=== PATIENT | female | born 1995 | race Two or more races ===

== ENCOUNTER 2017-10-12 03:32 | Inpatient (IN) | payer BC, OTHER ==
[2017-10-12] MEDS ORDERED: Ondansetron ODT 4 MG TAB ONE (03:59)
[2017-10-12] MEDS ORDERED: Acetaminophen 500 MG TAB ONE (04:05)
[2017-10-12 04:18] LABS: #Eosinphils 0.1 thou/uL (0.0-0.7); %Basophils 0.3 % (0.0-1.0); %Eosinophils 0.7 % (0.0-10.0); %Lymphocytes 13.9 % (21.0-51.0); %Monocytes 0.3 % (0.0-10.0); %Neutrophils 84.9 % (42.0-75.0); Hemoglobin 13.9 g/dL (12.0-16.0); Mean Corpuscular HGB CONC 35.3 g/dL (32.0-36.0); Mean Corpuscular Hemoglobin 31.9 pg (27.0-31.0); Mean Corpuscular Volume 90.3 fl (81.0-99.0); Mean Platelet Volume 7.7 fL (7.4-10.4); Platelet Count 168 thou/uL (130-400); RBC Distribution Width 13.3 % (11.5-14.5); Red Blood Cell (RBC) Count 4.37 mill/uL (4.20-5.40); White Blood Cell (WBC) Count 7.1 thou/uL (4.8-10.8)
[2017-10-12 04:21] LABS: Pregnancy Test - Urine (BHCG) Negative (Negative); Pregu Control Background? CLEAR/WHITE (CLR/WHITE); Pregu Control Bar Appear? YES (CONTROL BAR)
[2017-10-12 04:22] LABS: Bilirubin Negative (Negative); Blood, Urine Moderate (Negative); Clarity CLOUDY (Clear); Glucose, Urine (Dipstick) Negative (Negative); Leukocyte Moderate (Negative); Nitrite Positive (Negative); Protein, Urine (Dipstick) 30 mg/dL (Neg-Trace); Specific Gravity, Urine 1.014 (1.002-1.036); Urobilinogen 0.2 mg/dL (0.2-1.0); pH, Urine 6.5 (5.0-9.0)
[2017-10-12 04:23] LABS: BHCG - Serum Negative (NEGATIVE); Pregs Control Background? CLEAR/WHITE (CLR/WHITE); Pregs Control Bar Appear? YES (CONTROL BAR)
[2017-10-12 04:25] LABS: Bacteria/HPF 4+ HPF (None Seen); Hyaline Casts/LPF 0-3 HYALINE CAST LPF (0-3 Hyaline); Pathc Cast-AUWi Flag 0.54 (0-2.49); Squamous Epithelial 0-3 HPF (0-3); Yeast-AUWi Flag 23.4 (0-25.0)
[2017-10-12 04:28] LABS: Specific Gravity 1.014 (1.002-1.036)
[2017-10-12 04:30] LABS: Anion Gap 13 mmol/L (10-20); BUN (Urea Nitrogen) 15 mg/dL (7.0-18.7); Calc. Creatinine Clearance 0 mL/min (70-130); Calcium 9.4 mg/dL (7.8-10.44); Carbon Dioxide 22 mmol/L (22-29); Chloride 107 mmol/L (98-107); Estimated GFR-MDRD 65; Glucose 94 mg/dL (70-105); Potassium 3.9 mmol/L (3.5-5.1); Sodium 138 mmol/L (136-145)
[2017-10-12] MEDS ORDERED: Ketorolac Tromethamine 30 MG/ML VIAL ONE (05:15)
[2017-10-12] MEDS ORDERED: Ondansetron ODT 4 MG TAB PO PRN (06:37)
[2017-10-12] MEDS ORDERED: Ondansetron HCl/PF 4 MG/2 ML Vial IVP PRN (06:37)
[2017-10-12] MEDS ORDERED: Acetaminophen 325 MG TAB PO PRN ×2 (06:38→08:31)
[2017-10-12] MEDS ORDERED: HYDROcodone/Acetaminophen 5/325 mg Tablet PO PRN ×2 (08:31→20:51)
[2017-10-12] MEDS ORDERED: Benzonatate 100 MG CAP PO PRN (08:31)
[2017-10-12] MEDS ORDERED: cloNIDine 0.1 MG TAB PO PRN (08:31)
[2017-10-12] MEDS ORDERED: Nitroglycerin 0.4 MG TAB (25 Tab Bottle) SL PRN (08:31)
[2017-10-12] MEDS ORDERED: Mag-Al 1200 mg/1200 mg/30 ML UDCUP PO PRN (08:31)
[2017-10-12] MEDS ORDERED: Diabetic Tussin 200 MG/10 ML UDCUP PO PRN (08:31)
[2017-10-12] MEDS ORDERED: Bisacodyl 5 MG TAB PO PRN (08:31)
[2017-10-12] MEDS ORDERED: hydrALAZINE 20 MG/ML VIAL SLOW IVP PRN (08:31)
[2017-10-12] MEDS ORDERED: Calcium Carbonate 500 MG ChewTAB PO PRN (08:31)
[2017-10-12] MEDS ORDERED: Senokot 8.6 MG TAB PO PRN (08:31)
[2017-10-12 08:41] LABS: Lactic Acid 0.9 mmol/L (0.5-2.2)
[2017-10-12] MEDS ORDERED: cefTRIAXone\\ROCEPHIN 1 GM in Sodium Chloride 0.9% 100 ML IVPB SCH (08:45)
[2017-10-12] MEDS ORDERED: cefTRIAXone\\ROCEPHIN 1 GM, Syringe 0.4 ML in Sterile Water 9.6 ML SLOW IVP SCH (10:00)
[2017-10-12 10:27] LABS: HIV (1/2) Antibody/Antigen Reflxed Confirmation (NonReactive)
[2017-10-12 10:28] LABS: HIV 1/2 INDEX 363.46 S/CO (<1.00)
[2017-10-12] MEDS: Enoxaparin Sodium 40 MG/0.4 ML SYRINGE SC SCH (11:47)
[2017-10-12] MEDS: Sodium Chloride 0.9% 1,000 ML IV SCH ×2 (11:48→22:27)
[2017-10-12] MEDS: Famotidine 20 MG TAB PO SCH ×2 (11:48→21:02)
[2017-10-12 12:30] VITALS: BMI 32.8
[2017-10-12] MEDS ORDERED: [UNRECOGNIZED DRUG - OTHER] FS SCH (12:30)
--- NOTE | 2017-10-12 12:31 | HP ---
DATE OF ADMISSION: 10/12/2017 PRIMARY CARE PHYSICIAN: Dr. Tushar Inman. CHIEF COMPLAINT: Dysuria, right flank pain and chills. HISTORY OF PRESENTING ILLNESS: Ms. Martinez is a very pleasant 22-year-old female with past m edical history of HIV, which is under remission, who presented to the emergency room with above-menti oned complaint. History is mainly obtained by the patient herself and electronic medical records hav e been reviewed. Ms. Martinez reports that she was diagnosed with HIV 2 years ago and since then she has followed up with Infectious Disease, Dr. Le and is currently on Genvoya and her viral load was undetectable. She started to have symptoms of dysuria and frequency about 1 week ago. Her symptoms worsened up to the point where 2 days ago, she started to have right flank pain, which has since worsened. She also started to have chills and nausea yesterday and presented to the ER. In the emergency room, she was found to have temperature of 100.7 and she was tachycardic at 212. Her urinalysis suggested urinary tract infection with +4 bacteria, multiple wbc's, rbc's, leukocyte esterase, and nitrite. She recei nini a dose of Rocephin in the emergency room and is now being admitted for urinary tract infection an d possibly pyelonephritis. PAST MEDICAL HISTORY: HIV. PAST SURGICAL HISTORY: None. PAST PSYCHIATRIC: No anxiety, no depression. SOCIAL HISTORY: She has 2 children and has no history of drug, tobacco or alcohol abuse. FAMILY HISTORY: Both parents are alive and healthy. She denies any history of premature coronary ar cecy disease, stroke, diabetes, and hypertension running in her family. ALLERGIES: No known medication allergies. MEDICATIONS: Genvoya 1 tablet daily. REVIEW OF SYSTEMS: The following complete review of systems was negative, unless otherwise mentioned in the HPI or below: Constitutional: Weight loss or gain, ability to conduct usual activities. Skin: Rash, itching. Eyes: Double vision, pain. ENT/Mouth: Nose bleeding, neck stiffness, pain, tenderness. Cardiovascular: Palpitations, dyspnea on exertion, orthopnea. Respiratory: Shortness of breath, wheezing, cough, hemoptysis, fever or night sweats. Gastrointestinal: Poor appetite, abdominal pain, heartburn, nausea, vomiting, constipation, or diarr hea. Genitourinary: Urgency, frequency, dysuria, nocturia. Musculoskeletal: Pain, swelling. Neurologic/Psychiatric: Anxiety, depression. Allergy/Immunologic: Skin rash, bleeding tendency. PHYSICAL EXAMINATION: VITAL SIGNS: Upon presentation, blood pressure 127/76, pulse of 112, respirations 22, temperature 10 0.7, and saturating 97% on room air. GENERAL: No acute distress, awake, alert, oriented x3. HEENT: Mucous membrane is moist and pink. No oropharyngeal exudate or erythema. Head is normocepha lic, atraumatic. Pupils are equal and reactive to light and accommodation. Extraocular movement is intact. NECK: Supple without any lymphadenopathy, JVD or bruit. CHEST: Clear to auscultation without any wheezing, rales or rhonchi. CARDIOVASCULAR: Rhythm is regular without any murmur, rubs or gallops. ABDOMEN: Soft, nontender, and nondistended. No suprapubic tenderness either. EXTREMITIES: She has mild right CVA tenderness. No obvious discoloration or hematomas. SKIN: Free of any rashes or bruises. Feels warm and dry to touch. NEUROLOGIC: Examination is nonfocal. PSYCHIATRIC: Normal affect. LABORATORY DATA: Her CBC shows WBCs at 7.1 with 84% neutrophils, otherwise unremarkable. Serum chem istries are unremarkable. Lactic acid elevated at 2.3, which has trended down to 0.9. Serum pregnan cy test is negative. Urinalysis as per the HPI. IMPRESSION AND PLAN: 1. Pyelonephritis is most likely the diagnosis at this time especially given the right-sided CVA ten derness and flank pain. The patient will be continued on Rocephin and urine cultures have been obtai bella. Blood cultures have also been obtained. We will consult Infectious Disease, Dr. Le for furt her recommendations. At this time, it seems like the patient has well controlled human immunodeficie ncy virus and the risk for opportunistic infection is low. We will, however, obtain a CT with stone protocol to rule out alternative causes. She is currently hemodynamically stable and will be admitte d to medical floor. 2. Human immunodeficiency virus. We will restart her home medications of Genvoya. Recheck her joshua n immunodeficiency virus status with PCI and antibody. Once again, Dr. Le will be notified. 3. Deep venous thrombosis and gastrointestinal prophylaxis. 4. Add p.r.n. medication orders. DISPOSITION: Ms. Martinez is currently being admitted to medical floor for UTI with possible pyelonephr itis. Estimated length of stay is at least 2-3 minutes. Further management will depend upon her cli nical course.
[2017-10-12] MEDS ORDERED: FLU VACC QS2017-18 36 mo. & older 0.5 ML SYRINGE IM ONE (12:45)
--- NOTE | 2017-10-12 13:33 | CT ---
CT ABDOMEN AND PELVIS WITHOUT CONTRAST STONE PROTOCOL: HISTORY: Pyelonephritis. COMPARISON: None. FINDINGS: Lung bases are clear. No pericardial effusion. Cholelithiasis is present. The spleen is enlarged measuring 14 cm in length. There is mild right-sided hydroureteral nephrosis with fluid within the perirenal space. Mild dilata tion at multiple right-sided gonadal veins. No calculus is seen within the right ureter. Left renal collecting system is without hydroureteral nephrosis or nephroureteral lithiasis. The appendix is visualized and is normal. The skeleton is unremarkable. IMPRESSION: Mild thickening of the renal pelvic urothelium with very mild prominence of right proximal ureter. T his can be sequelae of pyelonephritis, pyelitis or recently passed stone. No nephroureteral lithiasi s is present. Alternatively, there is dilatation of the right gonadal vein which is markedly tortuou s. Thrombophlebitis is definitely a possibility with reactive thickening of the right ureter. POS: AD
--- NOTE | 2017-10-12 13:35 | ULT ---
BILATERAL RENAL ULTRASOUND: History: Pyelonephritis. Comparison: None. FINDINGS: The right kidney measures 10.6 x 4.1 x 6.2 cm. Left kidney measures 10.2 x 4.7 x 6.1 cm. Pre void uri nary bladder volume is 69 ml. No mass, hydronephrosis, or abnormal calcifications. IMPRESSION: Normal ultrasound. POS: BRENNA
--- NOTE | 2017-10-12 18:00 | CON ---
DATE OF CONSULTATION: 10/12/2017 REASON FOR CONSULTATION: Pyelonephritis. HISTORY OF PRESENT ILLNESS: A 22-year-old with longstanding history of HIV infection with adequate a ntiretroviral therapy intake has had couple of pregnancies while HIV seropositive and the last one wa s last year. She is currently on Genvoya and last CD4 cell count and viral load are from 12/2016, CD 4 701 and viral load less than 20. The patient claims adherence to her treatment, but now has been a dmitted with clinical symptoms consistent with an invasive UTI for the past 2 days including flank pa in, fever, chills, nausea. Currently, she is feeling better. The patient has been receiving IV ceft riaxone, denies any headaches, no visual symptoms, sore throat, odynophagia, dysphagia, no cough or s putum production or chest pain. Moderate right-sided flank pain, some dysuria. No joint symptoms or skin disorder. No neurological symptoms. PAST MEDICAL HISTORY: HIV seropositive status on Genvoya, last CD4 cell count is above 700 in 7, viral load was suppressed. PAST SURGICAL HISTORY: Negative. She is G2, P2. SOCIAL HISTORY: Never smoker. . FAMILY HISTORY: Noncontributory. ALLERGIES: None. MEDICATIONS: Genvoya 1 tablet daily. PHYSICAL EXAMINATION: VITAL SIGNS: T-max 98.9, blood pressure 108/55, pulse 81, respirations 18, and O2 sat 99%. SKIN: Normal. Peripheral IV access. No Briceno catheter. No lymphadenopathy. HEENT: Ocular movements are conjugate. Oral cavity normal. NECK: Supple. LUNGS: With symmetric clear breath sounds. HEART: S1, S2, regular rate. No S3 or S4. ABDOMEN: Soft, not distended or tender. No ascites. No bladder distention. NEUROLOGIC: Nonfocal. LABORATORY: White cell count 7.1, hemoglobin 13, platelets 168. Normal chemistry profile. Pregnanc y test negative. Urinalysis greater than 50 WBCs and pending urine culture. Last urine cultures log ged in about a year before with a pansensitive E. coli. ASSESSMENT: Human immunodeficiency virus seropositive status with previous adequate controlled viremia and normal CD4 cell count, now presents with pyelonephritis. DISCUSSION: The patient will continue on Rocephin to which she seems to be responding and wait on cu lture results and then transitioned to hopefully oral antimicrobial agent either Bactrim or ciproflox acin or levofloxacin, preferably depending on susceptibility of results. We will check a CD4 cell co unt and viral load while she is in the hospital.
[2017-10-12] MEDS: HYDROcodone/Acetaminophen 5/325 mg Tablet PO PRN (21:02)
[2017-10-13] MEDS: HYDROcodone/Acetaminophen 5/325 mg Tablet PO PRN ×2 (05:30→20:13)
[2017-10-13 05:56] LABS: #Eosinphils 0.1 thou/uL (0.0-0.7); #Lymphocytes 1.9 thou/uL (1.20-3.40); #Monocytes 0.5 thou/uL (0.11-0.59); %Basophils 0.2 % (0.0-1.0); %Lymphocytes 34.1 % (21.0-51.0); %Monocytes 9.7 % (0.0-10.0); %Neutrophils 53.9 % (42.0-75.0); Hemoglobin 11.2 g/dL (12.0-16.0); Mean Corpuscular HGB CONC 33.3 g/dL (32.0-36.0); Mean Corpuscular Hemoglobin 31.1 pg (27.0-31.0); Mean Corpuscular Volume 93.2 fl (81.0-99.0); Mean Platelet Volume 8.1 fL (7.4-10.4); Platelet Count 162 thou/uL (130-400); RBC Distribution Width 13.4 % (11.5-14.5); Red Blood Cell (RBC) Count 3.62 mill/uL (4.20-5.40); White Blood Cell (WBC) Count 5.5 thou/uL (4.8-10.8)
[2017-10-13 06:25] LABS: Anion Gap 8 mmol/L (10-20); BUN (Urea Nitrogen) 13 mg/dL (7.0-18.7); Calc. Creatinine Clearance 160 mL/min (70-130); Calcium 8.2 mg/dL (7.8-10.44); Carbon Dioxide 21 mmol/L (22-29); Chloride 112 mmol/L (98-107); Estimated GFR-MDRD 86; Glucose 80 mg/dL (70-105); Sodium 137 mmol/L (136-145)
[2017-10-13] MEDS: Sodium Chloride 0.9% 1,000 ML IV SCH ×2 (06:39→17:49)
[2017-10-13] MEDS: cefTRIAXone\\ROCEPHIN 1 GM, Syringe 0.4 ML in Sterile Water 9.6 ML SLOW IVP SCH (06:56)
[2017-10-13] MEDS: GENVOYA PO SCH ×2 (08:32→20:14)
[2017-10-13] MEDS: Enoxaparin Sodium 40 MG/0.4 ML SYRINGE SC SCH (08:33)
[2017-10-13] MEDS: Famotidine 20 MG TAB PO SCH ×2 (08:33→20:12)
[2017-10-13] MEDS ORDERED: Non-Formulary Item 1 EACH (Elviteg/Cob/Emtri/Tenof Alafen [Genvoya Tablet] 1 TAB) PO SCH (09:00)
[2017-10-13] MEDS: Ondansetron HCl/PF 4 MG/2 ML Vial IVP PRN ×2 (10:52→20:13)
--- NOTE | 2017-10-13 13:01 | PDOC.PN ---
- Subjective Encounter Start Date: 10/13/17 Encounter Start Time: 13:00 Subjective: c/o headache,malaise and more flank pain this morning -: no fever/chills.no N/V - Objective MAR Reviewed: Yes Vital Signs & Weight: Vital Signs (12 hours) Temp Pulse Resp BP Pulse Ox 10/13/17 09:00 98.8 F 64 16 121/57 L 100 10/13/17 08:00 98.7 F 76 20 10/13/17 05:30 98.7 F 76 20 130/69 98 Weight Weight 210 lb I&O: 10/12/17 10/13/17 10/14/17 06:59 06:59 06:59 Intake Total 1935 Output Total 1200 Balance 735 Result Diagrams: 10/13/17 05:17 10/13/17 05:17 Additional Labs: Microbiology 10/12/17 03:57 Urine Straight Catheter Urine Culture - Preliminary Escherichia coli 10/12/17 03:50 Venous blood - Right Hand Blood Culture - Preliminary Specimen has been received and culture in progress. No Growth to date. 10/12/17 03:50 Venous blood - Left Arm Blood Culture - Preliminary Specimen has been received and culture in progress. No Growth to date. Laboratory Tests 10/12/17 10/12/17 10/12/17 03:00 03:50 08:14 Lactic Acid 2.3 H 0.9 HIV 1&2 Antigen & Ab Reflxed Confirmation H Radiology Reviewed by me: Yes (Renal US-NL.Abd CT-no stones) Phys Exam - Physical Examination Constitutional: NAD tired looking HEENT: PERRLA, moist MMs, sclera anicteric, oral pharynx no lesions Neck: no nodes, no JVD, supple, full ROM Respiratory: no wheezing, no rales, no rhonchi, clear to auscultation bilateral Cardiovascular: RRR, no significant murmur Gastrointestinal: soft, non-tender, no distention, positive bowel sounds Musculoskeletal: no edema, pulses present Neurological: non-focal, normal sensation, moves all 4 limbs Psychiatric: normal affect, A&O x 3 Skin: no rash, normal turgor, cap refill <2 seconds Dx/Plan (1) Pyelonephritis Code(s): N12 - TUBULO-INTERSTITIAL NEPHRITIS, NOT SPCF ACUTE OR CHRONIC Status: Acute (2) Sepsis Code(s): A41.9 - SEPSIS, UNSPECIFIED ORGANISM Status: Acute (3) HIV (human immunodeficiency virus infection) Status: Acute - Plan out of bed/ambulate, DVT proph w/SCDs cont Rocephin for now.Urine Cx w E.Coli -: ID following. -: ? Gonadal vein thrombophlebitis accd to CT.clinically may not be relevant -: CD4,Viral load pending. -: cont supportive care. IVF.follow final results * . Review of Systems - Review of Systems Constitutional: weakness, malaise Eyes: negative: Pain, Vision Change, Conjunctivae Inflammation, Eyelid Inflammation, Redness, Other ENT: negative: Ear Pain, Ear Discharge, Nose Pain, Nose Discharge, Nose Congestion, Mouth Pain, Mouth Swelling, Throat Pain, Throat Swelling, Other Respiratory: negative: Cough, Dry, Shortness of Breath, Hemoptysis, SOB with Excertion, Pleuritic Pain, Sputum, Wheezing Gastrointestinal: Abdominal Pain. negative: Nausea, Vomiting, Diarrhea, Constipation, Melena, Hematochezia, Other Genitourinary: negative: Dysuria, Frequency, Incontinence, Hematuria, Retention , Other Musculoskeletal: negative: Neck Pain, Shoulder Pain, Arm Pain, Back Pain, Hand Pain, Leg Pain, Foot Pain, Other Skin: negative: Rash, Lesions, Fredrick, Bruising, Other Neurological: negative: Weakness, Numbness, Incoordination, Change in Speech, Confusion, Seizures, Other - Medications/Allergies Allergies/Adverse Reactions: Allergies Allergy/AdvReac Type Severity Reaction Status Date / Time No Known Allergies Allergy Verified 10/12/17 07:17 Medications: Current Medications Acetaminophen (Tylenol) 650 mg PO Q4H PRN PRN Reason: Headache/Fever or Pain Hydrocodone Bitart/Acetaminophen ([place] 5/325) 1 tab PO Q4H PRN PRN Reason: Moderate Pain (4-6) Last Admin: 10/12/17 18:00 Dose: 1 tab Hydrocodone Bitart/Acetaminophen ([place] 5/325) 2 tab PO Q4H PRN PRN Reason: Severe Pain (7-10) Last Admin: 10/13/17 05:30 Dose: 2 tab Al Hydroxide/Mg Hydroxide (Maalox) 30 ml PO Q6H PRN PRN Reason: Heartburn or Indigestion Benzonatate (Tessalon) 100 mg PO Q4H PRN PRN Reason: Cough Bisacodyl (Dulcolax) 10 mg PO DAILYPRN PRN PRN Reason: Constipation Calcium Carbonate (Tums) 1,000 mg PO Q4H PRN PRN Reason: Heartburn or Indigestion Clonidine (Catapres) 0.1 mg PO Q4H PRN PRN Reason: Systolic BP > 160 Enoxaparin Sodium (Lovenox) 40 mg SC 0900 [facility] Last Admin: 10/13/17 08:33 Dose: Not Given Famotidine (Pepcid) 20 mg PO BID [facility] Last Admin: 10/13/17 08:33 Dose: 20 mg Guaifenesin (Robitussin Sf) 200 mg PO Q4H PRN PRN Reason: Cough Hydralazine HCl (Apresoline) 10 mg SLOW IVP Q4H PRN PRN Reason: Systolic BP > 180 Sodium Chloride (Normal Saline 0.9%) 1,000 mls @ 100 mls/hr IV .Q10H [facility] Last Admin: 10/13/17 06:39 Dose: 1,000 mls Ceftriaxone Sodium 1 gm/ (Syringe 0.4 ml/ Sterile Water) 10 mls @ 120 mls/hr SLOW IVP 0600 [facility] Last Admin: 10/13/17 06:56 Dose: 10 mls Nitroglycerin (Nitrostat) 0.4 mg SL Q5MIN PRN PRN Reason: Chest Pain Ondansetron HCl (Zofran) 4 mg IVP Q6H PRN PRN Reason: Nausea/Vomiting Last Admin: 10/13/17 10:52 Dose: 4 mg [Genvoya Tablet] 1 (Tab) 0 each PO DAILY [facility] Last Admin: 10/13/17 08:32 Dose: 1 each Senna (Senokot) 2 tab PO HSPRN PRN PRN Reason: Constipation Sodium Chloride (Flush - Normal Saline) 10 ml IVF Q12HR [facility] Last Admin: 10/13/17 08:34 Dose: Not Given Sodium Chloride (Flush - Normal Saline) 10 ml IVF PRN PRN PRN Reason: Saline Flush
[2017-10-14] MEDS: HYDROcodone/Acetaminophen 5/325 mg Tablet PO PRN (06:27)
[2017-10-14] MEDS: cefTRIAXone\\ROCEPHIN 1 GM, Syringe 0.4 ML in Sterile Water 9.6 ML SLOW IVP SCH (07:01)
[2017-10-14 08:20] LABS: HIV 1 Antibody Multi-Spot Positive (Negative); HIV 2 Antibody Multi-Spot Negative (Negative); HIV Multi-spot Interp HIV-1 Positive (.)
[2017-10-14] MEDS: Famotidine 20 MG TAB PO SCH ×2 (08:21→19:58)
[2017-10-14] MEDS: Ondansetron HCl/PF 4 MG/2 ML Vial IVP PRN (08:25)
[2017-10-14] MEDS: Enoxaparin Sodium 40 MG/0.4 ML SYRINGE SC SCH (09:17)
[2017-10-14 13:17] LABS: %CD4 (Helper/Inducer) 44.2 % (30.8-58.5); Absolute CD4 751 /uL (359-1519); Lymphocytes/Gated Cell Count 1.7 x10E3/uL (0.7-3.1); Total Lymphocyte 24 % (Not Estab.); WBC Total Count 7.1 x10E3/uL (3.4-10.8)
--- NOTE | 2017-10-14 14:12 | PDOC.PN ---
- Subjective Encounter Start Date: 10/14/17 Encounter Start Time: 14:10 Subjective: still feels nauseated sometimes and has R flank pain on & off - Objective MAR Reviewed: Yes Vital Signs & Weight: Vital Signs (12 hours) Temp Pulse Resp BP 10/14/17 11:39 97.9 F 50 L 20 111/61 10/14/17 08:32 98.6 F 65 20 97/60 10/14/17 08:00 98.6 F 65 20 10/14/17 04:20 98.2 F 95 18 113/58 L Weight Weight 210 lb I&O: 10/13/17 10/14/17 10/15/17 06:59 06:59 06:59 Intake Total 1935 1960 120 Output Total 1200 Balance 735 1960 120 Result Diagrams: 10/13/17 05:17 10/13/17 05:17 Additional Labs: Microbiology 10/12/17 03:57 Urine Straight Catheter Urine Culture - Final Escherichia coli 10/12/17 03:50 Venous blood - Left Arm Blood Culture - Preliminary Specimen has been received and culture in progress. No Growth to date. 10/12/17 03:50 Venous blood - Left Arm Blood Culture - Preliminary NO GROWTH AT 48 HOURS Laboratory Tests 10/12/17 10/12/17 10/12/17 03:00 11:55 16:22 Total Lymphs/Cells Gated 1.7 Total WBC 7.1 Total Lymphocytes 24 % T-[place]/Inducer 44.2 Absolute CD4 Count 751 HIV-1 Antibody (EIA) Positive A HIV-2 Antibody (EIA) Negative HIV 1&2 Antigen & Ab Reflxed Confirmation H HIV 1&2 Antibody Interp HIV-1 Positive Phys Exam - Physical Examination Constitutional: NAD HEENT: PERRLA, moist MMs, sclera anicteric, oral pharynx no lesions Neck: no nodes, no JVD, supple, full ROM Respiratory: no wheezing, no rales, no rhonchi, clear to auscultation bilateral Cardiovascular: RRR, no significant murmur Gastrointestinal: soft, non-tender, no distention, positive bowel sounds R CVA tenderness Musculoskeletal: no edema, pulses present Neurological: non-focal, normal sensation, moves all 4 limbs Psychiatric: normal affect, A&O x 3 Skin: no rash Dx/Plan (1) Pyelonephritis Code(s): N12 - TUBULO-INTERSTITIAL NEPHRITIS, NOT SPCF ACUTE OR CHRONIC Status: Acute (2) Sepsis Code(s): A41.9 - SEPSIS, UNSPECIFIED ORGANISM Status: Acute (3) HIV (human immunodeficiency virus infection) Status: Acute - Plan continue antibiotics, out of bed/ambulate, DVT proph w/SCDs cont IVF,IV ABx.E.coli sensistive to Rocephin -: slow clinical progress. -: ID following * . Review of Systems - Review of Systems Constitutional: malaise. negative: fever, chills, sweats, weakness, other Eyes: negative: Pain, Vision Change, Conjunctivae Inflammation, Eyelid Inflammation, Redness, Other ENT: negative: Ear Pain, Ear Discharge, Nose Pain, Nose Discharge, Nose Congestion, Mouth Pain, Mouth Swelling, Throat Pain, Throat Swelling, Other Respiratory: negative: Cough, Dry, Shortness of Breath, Hemoptysis, SOB with Excertion, Pleuritic Pain, Sputum, Wheezing Cardiovascular: negative: chest pain, palpitations, orthopnea, paroxysmal nocturnal dyspnea, edema, light headedness, other Gastrointestinal: Nausea, Abdominal Pain. negative: Vomiting, Diarrhea, Constipation, Melena, Hematochezia, Other Genitourinary: negative: Dysuria, Frequency, Incontinence, Hematuria, Retention , Other Musculoskeletal: negative: Neck Pain, Shoulder Pain, Arm Pain, Back Pain, Hand Pain, Leg Pain, Foot Pain, Other Skin: negative: Rash, Lesions, Fredrick, Bruising, Other Neurological: negative: Weakness, Numbness, Incoordination, Change in Speech, Confusion, Seizures, Other - Medications/Allergies Allergies/Adverse Reactions: Allergies Allergy/AdvReac Type Severity Reaction Status Date / Time No Known Allergies Allergy Verified 10/12/17 07:17 Medications: Current Medications Acetaminophen (Tylenol) 650 mg PO Q4H PRN PRN Reason: Headache/Fever or Pain Hydrocodone Bitart/Acetaminophen ([place] 5/325) 1 tab PO Q4H PRN PRN Reason: Moderate Pain (4-6) Last Admin: 10/12/17 18:00 Dose: 1 tab Hydrocodone Bitart/Acetaminophen ([place] 5/325) 2 tab PO Q4H PRN PRN Reason: Severe Pain (7-10) Last Admin: 10/14/17 06:27 Dose: 2 tab Al Hydroxide/Mg Hydroxide (Maalox) 30 ml PO Q6H PRN PRN Reason: Heartburn or Indigestion Benzonatate (Tessalon) 100 mg PO Q4H PRN PRN Reason: Cough Bisacodyl (Dulcolax) 10 mg PO DAILYPRN PRN PRN Reason: Constipation Calcium Carbonate (Tums) 1,000 mg PO Q4H PRN PRN Reason: Heartburn or Indigestion Clonidine (Catapres) 0.1 mg PO Q4H PRN PRN Reason: Systolic BP > 160 Enoxaparin Sodium (Lovenox) 40 mg SC 0900 [facility] Last Admin: 10/14/17 09:17 Dose: Not Given Famotidine (Pepcid) 20 mg PO BID [facility] Last Admin: 10/14/17 08:21 Dose: 20 mg Guaifenesin (Robitussin Sf) 200 mg PO Q4H PRN PRN Reason: Cough Hydralazine HCl (Apresoline) 10 mg SLOW IVP Q4H PRN PRN Reason: Systolic BP > 180 Sodium Chloride (Normal Saline 0.9%) 1,000 mls @ 100 mls/hr IV .Q10H [facility] Last Admin: 10/13/17 17:49 Dose: 1,000 mls Ceftriaxone Sodium 1 gm/ (Syringe 0.4 ml/ Sterile Water) 10 mls @ 120 mls/hr SLOW IVP 0600 [facility] Last Admin: 10/14/17 07:01 Dose: 10 mls Nitroglycerin (Nitrostat) 0.4 mg SL Q5MIN PRN PRN Reason: Chest Pain Ondansetron HCl (Zofran) 4 mg IVP Q6H PRN PRN Reason: Nausea/Vomiting Last Admin: 10/14/17 08:25 Dose: 4 mg [Genvoya Tablet] 1 (Tab) 0 each PO QPM [facility] Senna (Senokot) 2 tab PO HSPRN PRN PRN Reason: Constipation Sodium Chloride (Flush - Normal Saline) 10 ml IVF Q12HR [facility] Last Admin: 10/14/17 08:25 Dose: 10 ml Sodium Chloride (Flush - Normal Saline) 10 ml IVF PRN PRN PRN Reason: Saline Flush
[2017-10-14 14:20] LABS: HIV-1 Quantitative, RNA PCR <20 copies/mL (.)
[2017-10-14] MEDS: Sodium Chloride 0.9% 1,000 ML IV SCH (15:20)
[2017-10-14] MEDS ORDERED: GENVOYA PO SCH (21:00)
[2017-10-15] MEDS: cefTRIAXone\\ROCEPHIN 1 GM, Syringe 0.4 ML in Sterile Water 9.6 ML SLOW IVP SCH (06:07)
[2017-10-15] MEDS: Sodium Chloride 0.9% 1,000 ML IV SCH ×2 (06:08→11:28)
[2017-10-15] MEDS: Enoxaparin Sodium 40 MG/0.4 ML SYRINGE SC SCH (09:39)
[2017-10-15] MEDS: Famotidine 20 MG TAB PO SCH (09:41)
[2017-10-15 10:39] VITALS: BP 116/77; TEMP 98.8
--- NOTE | 2017-10-15 13:38 | PDOC.PN ---
- Subjective Encounter Start Date: 10/15/17 Encounter Start Time: 13:37 Ms. Martinez was seen today in follow-up. She does not have any complaints this afternoon. - Objective MAR Reviewed: Yes Vital Signs & Weight: Vital Signs (12 hours) Temp Pulse Resp BP Pulse Ox 10/15/17 10:38 98.8 F 51 L 16 116/77 98 10/15/17 08:00 98.6 F 66 16 98 10/15/17 07:05 98.6 F 66 16 114/78 98 Weight Weight 210 lb I&O: 10/14/17 10/15/17 10/16/17 06:59 06:59 06:59 Intake Total 1960 320 Balance 1960 320 Result Diagrams: 10/13/17 05:17 10/13/17 05:17 Phys Exam - Physical Examination HEENT: PERRLA Respiratory: no wheezing, no rales, no rhonchi, clear to auscultation bilateral Cardiovascular: RRR, no significant murmur, no rub Gastrointestinal: soft, non-tender, positive bowel sounds Musculoskeletal: no edema Dx/Plan (1) HIV (human immunodeficiency virus infection) Status: Acute (2) Pyelonephritis Code(s): N12 - TUBULO-INTERSTITIAL NEPHRITIS, NOT SPCF ACUTE OR CHRONIC Status: Acute - Plan * Pyelonephritis-improved * Urine Culture is positive for E. Coli- sensitive to Quinolones * She is stable for discharge home..
--- NOTE | 2017-10-15 15:49 | DIS ---
DATE OF ADMISSION: 10/12/2017 DATE OF DISCHARGE: 10/15/2017 PRIMARY CARE PHYSICIAN: Dr. Inman. DISCHARGE DISPOSITION: Home. PRIMARY DISCHARGE DIAGNOSES: 1. Acute pyelonephritis. 2. History of human immunodeficiency virus. DISCHARGE MEDICATIONS: Ciprofloxacin 500 mg twice a day for 7 days. She is to continue Genvoya 1 ta blet daily. PROCEDURES DONE DURING ADMISSION: The patient had a CT scan of the abdomen and pelvis in which there was some mild thickening of the renal pelvis with some prominence of the right proximal ureter, whic h can be pyelonephritis or pyelitis or recently passed stone. She had a urine culture done, wh ich grew E. coli with greater than 10,000 colony forming units and it was sensitive to CEPHALOSPORINS , and QUINOLONES. CODE STATUS: FULL CODE. ALLERGIES: No known drug allergies. HOSPITAL COURSE: Ms. Martinez is a pleasant 22-year-old female who presented to the emergency room with complaints of right flank pain and pain with urination and chills. She was found to have pyelonephr itis. She was treated with IV antibiotics including Rocephin. Urine cultures grew E. coli sensitive to quinolones and sensitive to cephalosporins; however, was resistant to Bactrim. She improved duri ng the course of her hospital stay and was able to be discharged home with close outpatient followup. She does have a history of HIV and she has been stable with this and compliant with medications. S he was seen by Dr. Le during her hospital stay and there was no need to change medications. She w as maintained on Genvoya and basically had no complaints related to that diagnosis.
== END 2017-10-15 16:36 | disposition home or self-care (01) | DRG 689 ==
LOC: ERS 03:32 → 3SE 05:05 → T4-A 10-14 15:12
PROVIDERS: ADMIT Family Medicine; ATTEND Family Medicine
DX: N10 Acute pyelonephritis (principal); B20 Human immunodeficiency virus [HIV] disease
CPT/HCPCS: 36415; 51701; 74176; 76770; 80048; 81003; 81015; 81025; 83605; 84703; 85025; 85048; 86361; 86701; 86702; 87040; 87077; 87086; 87186; 87389; 87536; 96361; 96365; 96375; A4216; A4353; J0696; J1650; J1885; J2405; Q0162

== ENCOUNTER 2018-08-12 05:30 | Inpatient (IN) | payer OTHER ==
[2018-08-12] MEDS ORDERED: Zidovudine 200 MG/20 ML VIAL IVPB SCH (06:45)
[2018-08-12] MEDS ORDERED: NS / Oxytocin 40 units/1000ml 1,000 ML IV PRN (06:45)
[2018-08-12] MEDS ORDERED: Lidocaine 1% (PF) 30 ML VIAL SC PRN (06:45)
[2018-08-12] MEDS ORDERED: NS w/ Oxytocin 10 units 500 ML IV SCH ×2 (06:45)
[2018-08-12] MEDS ORDERED: Butorphanol Tartrate 1 MG/ML VIAL SLOW IVP PRN (06:45)
[2018-08-12] MEDS ORDERED: HYDROcodone/Acetaminophen 5/325 mg Tablet PO PRN ×4 (06:45→17:38)
[2018-08-12] MEDS ORDERED: Ondansetron PF 4 MG/2 ML Vial IVP PRN ×3 (06:45→17:38)
[2018-08-12] MEDS ORDERED: Ibuprofen 800 MG TAB PO PRN (06:45)
[2018-08-12] MEDS ORDERED: Promethazine HCl 25 MG/ML VIAL IM PRN ×2 (06:45→14:20)
[2018-08-12 07:08] VITALS: BMI 35.4
[2018-08-12] MEDS ORDERED: WATER IVPB SCH ×2 (07:15)
[2018-08-12] MEDS ORDERED: ZIDOVUDINE IVPB SCH ×2 (07:15)
[2018-08-12] MEDS ORDERED: DEXTROSE 5% IVPB SCH ×2 (07:15)
[2018-08-12] MEDS: Lactated Ringer's 1,000 ML IV SCH ×3 (07:20→13:51)
[2018-08-12 07:36] LABS: Hemoglobin 12.2 g/dL (12.0-16.0); Mean Corpuscular HGB CONC 34.5 g/dL (32.0-36.0); Mean Corpuscular Hemoglobin 32.2 pg (27.0-31.0); Mean Corpuscular Volume 93.4 fL (78.0-98.0); Mean Platelet Volume 6.6 fL (7.4-10.4); Platelet Count 182 thou/uL (130-400); RBC Distribution Width 12.9 % (11.5-14.5); Red Blood Cell (RBC) Count 3.79 mill/uL (4.20-5.40); White Blood Cell (WBC) Count 7.7 thou/uL (4.8-10.8)
[2018-08-12 08:14] LABS: HBSAg Index 0.23 S/CO (0-0.99); Hep B Surf Ag Non-Reactive S/CO (NonReactive)
[2018-08-12 08:15] LABS: Syphilis Antibody Nonreactive (Nonreactive); Syphilis Antibody Index 0.04 S/CO (<1.00 Non-Reactive)
--- NOTE | 2018-08-12 08:20 | PDOC.LDHP ---
Labor and Delivery H&P Chief complaint: scheduled induction HPI: Pt is a 23yo @ 39.1 here for IOL for complicated by asx HIV infection. On HAART most of her , VL not detectable last week. Current gestational age (weeks): 39 Due date: 08/18/18 Dating criteria: last menstrual period, first trimester ultrasound Grav: 3 Para: 2 OB History Details: x 2, HIV dx at time of first Current complications: other (HIV) Abnormal US findings: No Past Medical History: HIV +, on Genvoya, VL ND last week Current medications: pre-garrick vitamins, other (Genvoya) Previous surgical history: none Allergies/Adverse Reactions: Allergies Allergy/AdvReac Type Severity Reaction Status Date / Time No Known Allergies Allergy Verified 10/12/17 07:17 Social history: none - Physical Exam Vital signs reviewed and normal: yes General: resting Heart: RRR Lungs: CTAB Abdomen: gravid Extremeties: no edema FHT: category 1 - Vaginal Exam cm dilated: 3 Effacement: 25% Station: -2 - OB Labs Blood type: A RH: positive Antibody Screen: negative HIV: positive RPR: negative HEPSAg: negative 1 hour GCT: negative GBS: negative Rubella: immune - Assessment L&D Assessment: medically indicated induction - Plan Plan: admit to L&D, labor augmentation if indicated, informed consent obtained, anesthesia consult for pain management -: A/P: 23yo @ 39.1 here for IOL for HIV+, AZT infusing at loading dose now , will continue through delivery. Viral load NOT DETECTABLE. Nursery notified of dx. Pitocin ordered. Cervix favorable for IOL.
[2018-08-12] MEDS ORDERED: Fentanyl 4 mcg/Bup 0.1% Cadd 100 ML ONE (11:28)
[2018-08-12] MEDS ORDERED: Fentanyl 100 MCG/2 ML VIAL ONE (11:46)
[2018-08-12] MEDS ORDERED: Fentanyl 100 MCG/2 ML VIAL EPIDURAL SCH (12:05)
[2018-08-12] MEDS ORDERED: diphenhydrAMINE 50 MG/ML VIAL IVP PRN (14:20)
[2018-08-12] MEDS ORDERED: Acetaminophen 325 MG TAB PO PRN (14:20)
[2018-08-12] MEDS ORDERED: Eucerin (Mineral Oil/Petrolatum,White) 30 gm Jar TOP PRN (14:20)
[2018-08-12] MEDS ORDERED: ePHEDrine/0.9% NaCl/PF SYRINGE 50 mg/10 ml SLOW IVP PRN (14:20)
[2018-08-12] MEDS ORDERED: Naloxone HCl 0.4 mg/ml Vial IVP PRN ×2 (14:20)
[2018-08-12] MEDS ORDERED: Lactated Ringer's 500 ML IV PRN (14:20)
[2018-08-12] MEDS ORDERED: Communication Order-Pharmacy FS SCH (14:30)
[2018-08-12] MEDS ORDERED: Fentanyl 4 mcg/Bupivacaine 0.1% Cassette 100 ML EPIDURAL SCH (14:30)
[2018-08-12] MEDS ORDERED: Bupivacaine/Epinephrine 0.25% 30 ML VIAL ONE (15:00)
[2018-08-12] MEDS ORDERED: Bupivacaine 0.25% HCL 30 ML VIAL ONE (15:00)
--- NOTE | 2018-08-12 15:03 | PDOC.OPDEL ---
OB Operative/Delivery Note Delivery Dr/Surgeon: Rafi Pre-Delivery Diagnosis: medically indicated induction (for HIV+) Procedure/Post Delivery Dx: spontaneous vaginal delivery Weeks gestation: 39 Anesthesia: epidural - Findings A Sex: female - 1 min: 8 - 5 min: 9 - Additional Findings/Plan Placenta delivered: spontaneous Repaired Obstetrical Laceration: periurethral (left) Estimated blood loss: 378ml Post delivery plan: routine recovery
[2018-08-12] MEDS ORDERED: Preparation H Ointment 28 GM TUBE PR PRN (17:38)
[2018-08-12] MEDS ORDERED: Benzocaine/Menthol 20-0.5% 60 ML CAN TOP PRN (17:38)
[2018-08-12] MEDS ORDERED: Milk Of Magnesia 30 ML UDCUP PO PRN (17:38)
[2018-08-12] MEDS ORDERED: NS / Oxytocin 40 units/1000ml 1,000 ML IV SCH (17:38)
[2018-08-12] MEDS ORDERED: Adacel (T-DAP) 0.5 ML SYRINGE IM ONE (17:38)
[2018-08-12] MEDS ORDERED: Bisacodyl 10 MG SUPP PR PRN (17:38)
[2018-08-12] MEDS ORDERED: diphenhydrAMINE 25 MG CAP PO PRN (17:38)
[2018-08-12] MEDS: Ferrous Sulfate 325 MG TAB PO SCH (18:35)
[2018-08-12] MEDS: Docusate Calcium (SURFAK) 240 MG CAP PO SCH (21:14)
[2018-08-12] MEDS ORDERED: Ibuprofen 600 MG TAB PO PRN (21:57)
[2018-08-13] MEDS ORDERED: Prenatal Vitamin 1 TAB PO SCH (09:00)
[2018-08-13] MEDS ORDERED: Prevnar 13-Val Conj/PF 0.5 ML SYRINGE IM ONE (09:00)
--- NOTE | 2018-08-13 09:25 | PRG ---
DATE OF SERVICE: 08/13/2018 PRIMARY DRY END TESTER: Chandu Mckee DO [place] SUBJECTIVE: The patient is day 1, status post term spontaneous vaginal delivery complicated by positive HIV status. Yesterday, it was complicated by concerns of from the nursing staff of more than expected vaginal bleeding after delivery and reported a total quantity of blood loss of over 700 mL of blood. By evening time; however, the patient was having scant bleeding, and continues this morning with scant bleeding. CBC is still pending. The patient reports she is tolerating p.o., voiding on her own having decreased lochia and good pain control. OBJECTIVE: VITAL SIGNS: This morning, blood pressure is 116/56, temperature 98.0, pulse is 75, and respiratory rate of 18. GENERAL: She appears to be in no acute distress. She is alert, oriented, cooperative, and pleasant to interact with. HEENT: Head is normocephalic and atraumatic. ABDOMEN: Fundus is firm. EXTREMITIES: Nontender and nonedematous. ASSESSMENT AND PLAN: The patient is day 1, status post term spontaneous vaginal delivery. Anticipate discharge tomorrow. Job ID: [id number]
[2018-08-13] MEDS: Ferrous Sulfate 325 MG TAB PO SCH ×2 (09:50→17:52)
[2018-08-13] MEDS: Docusate Calcium (SURFAK) 240 MG CAP PO SCH (09:51)
[2018-08-13 12:05] VITALS: BP 131/63; TEMP 97.6
--- NOTE | 2018-08-13 16:45 | PDOC.EVN ---
Event Note - Event Note Event Note: Wants to go home. VSS, AF Lochia small. Baby cleared for DC. Plan: DC home. Resume antiviral at home. RTC with Dr. Mckee in 6 weeks.
== END 2018-08-13 18:10 | disposition home or self-care (01) | DRG 806 ==
LOC: L&D 06:33 → 3SW 17:19
PROVIDERS: ADMIT Obstetrics & Gynecology; ATTEND Obstetrics & Gynecology
PROC: 10E0XZZ Delivery of Products of Conception, External Approach (ICD-10-PCS; principal; 2018-08-12)
PROC: 0HQ9XZZ Repair Perineum Skin, External Approach (ICD-10-PCS; 2018-08-12)
DX: O98.72 Human immunodeficiency virus [HIV] disease complicating childbirth (principal); O72.1 Other immediate postpartum hemorrhage; Z37.0 Single live birth; Z3A.39 39 weeks gestation of pregnancy; Z21 Asymptomatic human immunodeficiency virus [HIV] infection status; O71.82 Other specified trauma to perineum and vulva
CPT/HCPCS: 51702; 85027; 86780; 86850; 86900; 86901; 87340; J1200; J2550; J3010; J3485; J7070; S0020

== ENCOUNTER 2019-02-08 11:31 | Emergency (ER) | payer OTHER, SELFPAY ==
[2019-02-08 12:19] LABS: #Lymphocytes 1.3 thou/uL (1.20-3.40); #Monocytes 0.7 thou/uL (0.11-0.59); #Neutrophils 8.4 thou/uL (1.40-6.50); %Basophils 0.1 % (0.0-1.0); %Eosinophils 0.1 % (0.0-10.0); %Lymphocytes 12.7 % (21.0-51.0); %Monocytes 6.7 % (0.0-10.0); %Neutrophils 80.5 % (42.0-75.0); Hemoglobin 13.9 g/dL (12.0-16.0); Mean Corpuscular HGB CONC 34.5 g/dL (32.0-36.0); Mean Corpuscular Hemoglobin 31.1 pg (27.0-31.0); Mean Corpuscular Volume 90.1 fL (78.0-98.0); Mean Platelet Volume 7.4 fL (7.4-10.4); Platelet Count 179 thou/uL (130-400); RBC Distribution Width 12.5 % (11.5-14.5); Red Blood Cell (RBC) Count 4.46 mill/uL (4.20-5.40); White Blood Cell (WBC) Count 10.4 thou/uL (4.8-10.8)
--- NOTE | 2019-02-08 12:19 | RAD ---
2 views chest. HISTORY: Left-sided chest pain. PA and lateral views of the chest obtained. The lungs are well aerated. No evidence of active intrath oracic disease seen. No evidence of effusions, pneumonia or pneumothorax seen. IMPRESSION: unremarkable 2 views chest.
[2019-02-08 12:30] LABS: Bilirubin Negative (Negative); Blood, Urine Small (Negative); Clarity CLOUDY (Clear); Glucose, Urine (Dipstick) Negative (Negative); Leukocyte Large (Negative); Nitrite Positive (Negative); Protein, Urine (Dipstick) 30 mg/dL (Neg-Trace)
[2019-02-08 12:32] LABS: Bacteria/HPF 4+ HPF (None Seen); Pathc Cast-AUWi Flag 0.95 (0-2.49)
[2019-02-08 12:35] LABS: Hyaline Casts/LPF 0-3 HYALINE CAST LPF (0-3 Hyaline)
[2019-02-08 12:46] LABS: ALT (SGPT) 14 U/L (8-55); AST (SGOT) 13 U/L (5-34); Albumin 4.4 g/dL (3.5-5.0); Alkaline Phosphatase 63 U/L (40-150); Anion Gap 14 mmol/L (10-20); BUN (Urea Nitrogen) 9 mg/dL (7.0-18.7); Bilirubin, Total 1.4 mg/dL (0.2-1.2); Calc. Creatinine Clearance 0 mL/min (70-130); Calcium 9.5 mg/dL (7.8-10.44); Carbon Dioxide 23 mmol/L (22-29); Chloride 104 mmol/L (98-107); Estimated GFR-MDRD 54; Glucose 102 mg/dL (70-105); Potassium 3.6 mmol/L (3.5-5.1); Protein, Total 8.4 g/dL (6.0-8.3); Sodium 137 mmol/L (136-145)
[2019-02-08] MEDS ORDERED: Piperacillin/Tazobactam 4.5 GM VIAL ONE (13:54)
[2019-02-08] MEDS ORDERED: Ondansetron PF 4 MG/2 ML Vial ONE (13:54)
[2019-02-08] MEDS ORDERED: Acetaminophen 325 MG TAB ONE (13:54)
[2019-02-08] MEDS ORDERED: Ibuprofen 200 MG TAB ONE (13:54)
[2019-02-08] MEDS ORDERED: diphenhydrAMINE 50 MG/ML VIAL ONE (17:45)
== END 2019-02-08 18:30 | disposition home or self-care (01) ==
LOC: ERS 11:31
DX: N12 Tubulo-interstitial nephritis, not specified as acute or chronic (principal); B20 Human immunodeficiency virus [HIV] disease; Z79.899 Other long term (current) drug therapy
CPT/HCPCS: 36415; 71046; 80053; 81003; 81015; 83605; 85025; 87040; 87077; 87086; 87186; 87804; 96361; 96365; 96367; 96375; J1200; J2405; J2543; J3370

== ENCOUNTER 2020-07-25 19:11 | Emergency (ER) | payer SELFPAY | END 2020-07-25 20:30 | disposition home or self-care (01) | LOC: ERS 19:11 | DX: M26.601 Right temporomandibular joint disorder, unspecified (principal); K08.89 Other specified disorders of teeth and supporting structures; B20 Human immunodeficiency virus [HIV] disease; Z79.899 Other long term (current) drug therapy | CPT/HCPCS: 99283 ==